=== PATIENT | female | born 1975 | race Caucasian/White ===

== ENCOUNTER → 2017-08-30 | Outpatient (CLI) | payer OTHER ==
[2017-08-30 09:43] VITALS: BP 95/51; PULSE 82; TEMP 96.6; BMI 17.2
--- NOTE | 2017-08-30 10:30 | P.GSHP ---
History of Present Illness H&P Date: 08/30/17 Patient is a 42 year old white female with a complaint of a lump in her left breast which changes in size at times. She also has a cystic change just under her left breast which changes in size at times. She does not have pain otherwise in her breast. Her last radiographic studies were a year ago, the left breast had additional views obtained and an ultrasound showed multiple cyst. At that time the patient was recommended to go to [place] for cyst aspiration, however for personal reason she was unable to make the trip. She presents today for evaluation as to the cysts/palpable changes in her breast. She also complains of 15 pound weight loss she has not ried to lose weight. family history: maternal grandmother; of breast cancer 76 maternal grandfather: cancer uncertain of type maternal aunt: brain uncertain if had breast cancer 5 maternal aunt: breast, dx at ? age sister: ovarian cancer in her 30's social: smoke: 1/2 PPD > 10 years alcohol: none drugs: none past surgical history: 1. C section ties 2 2. gallbladder 3. cervical "freeze and scrape" ? cancer or pre-cancer past medical history: 1. migraines 2. 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 cervical changes in the past neuro: feels week allergies: none - Constitutional Comment: sweats at times Constitutional: Reports night sweats, Denies chills, Denies fever - EENT Eyes: bilateral blurred vision Ears: bilateral: earache Ears, nose, mouth and throat: Reports headache, Denies sore throat - Breasts Breasts: bilateral: as per HPI - Cardiovascular Comment: midepigastric pain at times Cardiovascular: Denies shortness of breath - Respiratory Respiratory: Denies cough, Denies 7 - Gastrointestinal Comment: loose stools after gallblader removed Gastrointestinal: Denies abdominal pain, Denies diarrhea, Denies nausea, Denies vomiting - Genitourinary (Female) Genitourinary: Reports as per HPI - Musculoskeletal Comment: no arthritis, feet always cold Musculoskeletal: Reports muscle weakness - Integumentary Comment: cyst under left breast - Neurological Neurological: Reports weakness, Reports visual changes - Psychiatric Psychiatric: Denies anxiety, Denies depression - Endocrine Endocrine: Reports fatigue, Reports weight change - Hematologic/Lymphatic Comment: none - Allergic/Immunologic Comment: no seasonal allergies Allergic/Immunologic: Reports as per HPI Past Medical History Past Medical History: Cancer, Syncope Additional Past Medical History / Comment(s): cervical History of Any Multi-Drug Resistant Organisms: None Reported Past Surgical History: Section, Cholecystectomy, Tubal Ligation Additional Past Surgical History / Comment(s): section x2 Smoking Status: Current every day smoker Surgical - Exam Vital Signs Temp Pulse BP Pulse Ox 96.6 F L 82 95/51 99 08/30/17 09:37 08/30/17 09:37 08/30/17 09:37 08/30/17 09:37 - General cachectic - Eyes PERRL, normal ocular movement - ENT top edentulous/ wears false teeth on top bottom poor dentition normal pinna, normal nares - Neck no masses, trachea midline, no lymphadectomy, no venous distension - Respiratory normal respiratory effort, clear to auscultation - Cardiovascular Rhythm: regular Heart Sounds: normal: S1, S2 - Abdomen Abdomen: soft, non tender, no guarding, no rigid, no rebound - Integumentary no rash - Neurologic no disoriented, no combative - Musculoskeletal normal gait, normal posture - Psychiatric oriented to time, oriented to person, oriented to place, speech is normal, memory intact breast exam: Right breast: No dominant masses or nodules of concern and multiple positional exam Right axilla: No adenopathy of concern Left breast: Multiple positional exam reveals fibrocystic changes with increased nodularity in the 3 o'clock position close to the periareolar region this was placed to be consistent with a cyst that appears to be smooth-walled and bedside evaluation Left axilla: No adenopathy of concern that she had her last mammogram and ultrasound Assessment and Plan Assessment: Impression/plan: 1. Bilateral fibrocystic disease of the breast with increased nodularity in the left breast, last mammogram and ultrasound approximately one year ago would recommend repeat radiographic studies at this time 2. Chronic fatigue, weight loss, headaches, visual changes, weakness greater than left side than right with consider neurologic consultation and possible head CT 3. Strong family history of cancer including 5 aunts with breast cancer would recommend genetic counseling 4. Will follow-up patient after radiographic studies of the breast for possible cyst aspiration 5. Irregular periods, consider theater usher consult cc: Tito Ballesteros
--- NOTE | 2017-09-09 08:41 | MM ---
Reason for exam: clinical finding. Last mammogram was performed 1 year ago. History: Patient history of other cancer. Family history of breast cancer in grandmother and breast cancer in 5 maternal aunts. Took hormonal contraceptives beginning at age 15. Physical Findings: Nurse Summary: 1cm nodule in the left breast at 1 o'clock (nurse dw)> MG Diagnostic Mammo w CAD SHERLY Bilateral CC and MLO view(s) were taken. Prior study comparison: September 03, 2016, left breast mammogram, performed at [place]. August 27, 2016, bilateral mammogram, performed at [facility]. The breast tissue is extremely dense which could obscure a lesion on mammography. Benign appearing bilateral calcifications. No suspicious abnormality. No significant new findings when compared with previous films. These results were verbally communicated with the patient and result sheet given to the patient on 09/06/17. ASSESSMENT: Benign, BI-RAD 2 RECOMMENDATION: Routine screening mammogram of both breasts in 1 year.
--- NOTE | 2017-09-09 08:43 | USB ---
Reason for exam: clinical finding. History: Patient history of other cancer. Family history of breast cancer in grandmother and breast cancer in 5 maternal aunts. Took hormonal contraceptives beginning at age 15. US Breast LT Left complete breast ultrasound includes all four quadrants, the retroareolar region and axilla. Finding demonstrates a 6mm oval, cystic lesion at 12 o'clock, a 5mm oval, cystic lesion at 2 o'clock, a 7mm oval, cystic lesion at 5 o'clock, two 5mm cysts at 6 o'clock, a 6mm oval, cystic lesion at 9 o'clock, a 9mm oval, cystic lesion at 11 o'clock and a cystic cluster at 2 o'clock largest within cluster measuring 5mm. These results were verbally communicated with the patient and result sheet given to the patient on 09/06/17. ASSESSMENT: Benign, BI-RAD 2 RECOMMENDATION: Routine screening mammogram of both breasts in 1 year.
== END | disposition home or self-care (01) ==
LOC: MERGE 09:00 → WWCWWP 09:26
PROVIDERS: ATTEND Surgery
DX: R92.8 Other abnormal and inconclusive findings on diagnostic imaging of breast (principal)
CPT/HCPCS: 77066

== ENCOUNTER 2020-12-27 11:13 | Emergency (ER) | payer OTHER ==
[2020-12-27 11:40] VITALS: RESP 18; TEMP 98.1
[2020-12-27 11:50] LABS: Appearance,Urine Clear (Clear); Bilirubin,Urine Negative (Negative); Blood,Urine Trace (Negative); Color,Urine Yellow; Glucose,Urine (UA) Negative (Negative); Ketones,Urine Negative (Negative); Leukocyte Esterase,Urine Negative (Negative); Mucus,Urine Few /hpf; Nitrite,Urine Negative (Negative); PH, Urine 5.5 (5.0-8.0); Protein,Urine Negative (Negative); RBC,Urine <1 /hpf (0-5); Squamous Epithelial Cell,Urine 3 /hpf (0-4); Urobilinogen,Urine <2.0 mg/dL (<2.0); WBC,Urine 1 /hpf (0-5)
[2020-12-27] MEDS ORDERED: KETOROLAC 15 MG/ML 1 ML VIAL IVP STA (13:45)
[2020-12-27] MEDS ORDERED: SODIUM CHLORIDE 0.9% 500 ML 500 ML IV STA (13:45)
--- NOTE | 2020-12-27 14:47 | ED ---
Female Urogenital HPI - General Chief complaint: Urogenital Stated complaint: kidney stones Time Seen by Provider: 12/27/20 13:16 Source: patient, RN notes reviewed, old records reviewed Mode of arrival: ambulatory Limitations: no limitations - History of Present Illness Initial comments: Patient is a 45-year-old female presenting to emergency Department with complaints of bilateral lower back pain over the past 1 week. She states she has history of kidney stones and this is feeling similar nature. She describes the pain as aching muscles on the left side versus the right. She states is lower in nature and feels like it could be kidney pain. She denies doing anything as ago that could have this pain on. She denies any fevers or chills, some mild nausea but no vomiting. She denies any vaginal complaints, no dysuria. She denies any chest pain or shortness of breath. She has no further complaints. Her vitals are stable upon arrival. - Related Data Home Medications Medication Instructions Recorded Confirmed Estrogen,Con/M-Progest Acet 1 tab PO DAILY 12/27/20 12/27/20 [Prempro 0.3 mg-1.5 mg Tablet] Allergies Allergy/AdvReac Type Severity Reaction Status Date / Time No Known Allergies Allergy Verified 12/27/20 14:09 Review of Systems ROS Statement: Those systems with pertinent positive or pertinent negative responses have been documented in the HPI. ROS Other: All systems not noted in ROS Statement are negative. Past Medical History Past Medical History: Cancer, Syncope Additional Past Medical History / Comment(s): cervical History of Any Multi-Drug Resistant Organisms: None Reported Past Surgical History: Section, Cholecystectomy, Tubal Ligation Additional Past Surgical History / Comment(s): section x2 Past Psychological History: No Psychological Hx Reported Smoking Status: Current every day smoker Past Alcohol Use History: Occasional Past Drug Use History: None Reported General Exam - General Exam Comments Initial Comments: GENERAL: Patient is well-developed and well-nourished. Patient is nontoxic and in no acute distress. HEAD: Atraumatic, normocephalic. EYES: Pupils equal round and reactive to light, extraocular movements intact, sclera anicteric, conjunctiva are normal. Eyelids were unremarkable. ENT: Nares patent, oropharynx clear without exudates. Moist mucous membranes. NECK: Normal range of motion, supple without lymphadenopathy or JVD. LUNGS: Unlabored respirations. Breath sounds clear to auscultation bilaterally and equal. No wheezes rales or rhonchi. HEART: Regular rate and rhythm without murmurs, rubs or gallops. ABDOMEN: Soft, nontender, normoactive bowel sounds. No guarding, no rebound. No masses appreciated. Mild flank pain. : Deferred MUSCULOSKELETAL: Normal extremities with adequate strength and normal range of motion, no pitting or edema. No clubbing or cyanosis. NEUROLOGICAL: Patient is alert and oriented x 3. SKIN: Warm, Dry, normal turgor, no rashes or lesions noted. Limitations: no limitations Course Vital Signs 12/27/20 11:35 Temperature 98.1 F Pulse Rate 73 Respiratory 18 Rate Blood Pressure 103/63 O2 Sat by Pulse 99 Oximetry Medical Decision Making - Medical Decision Making Patient is a 45-year-old female here with bilateral mild flank pain over the past week. She is concerned for kidney stones again. Her vitals are stable. Labs are all within normal limits including normal white count, normal kidney function, urine shows evidence of infection. CT of the abdomen and pelvis shows bilateral nonobstructing renal stones, the largest stone is in the right measures 0.3 cm. Patient received fluids and Toradol, is resting comfortably. I will give her referral to urology. She is stable for discharge. She is agreeable to this plan of care. Return parameters were discussed with her and she verbalized understanding. - Lab Data Result diagrams: 12/27/20 13:55 12/27/20 13:55 Lab Results 12/27/20 12/27/20 12/27/20 Range/Units 11:40 13:55 13:55 WBC 6.7 (3.8-10.6) k/uL RBC 4.24 (3.80-5.40) m/uL Hgb 13.6 (11.4-16.0) gm/dL Hct 42.0 (34.0-46.0) % MCV 98.9 (80.0-100.0) fL MCH 32.1 (25.0-35.0) pg MCHC 32.4 (31.0-37.0) g/dL RDW 12.3 (11.5-15.5) % Plt Count 217 (150-450) k/uL MPV 8.7 Neutrophils % 61 % Lymphocytes % 32 % Monocytes % 5 % Eosinophils % 0 % Basophils % 0 % Neutrophils # 4.1 (1.3-7.7) k/uL Lymphocytes # 2.1 (1.0-4.8) k/uL Monocytes # 0.3 (0-1.0) k/uL Eosinophils # 0.0 (0-0.7) k/uL Basophils # 0.0 (0-0.2) k/uL Sodium 137 (137-145) mmol/L Potassium 3.7 (3.5-5.1) mmol/L Chloride 108 H (98-107) mmol/L Carbon Dioxide 20 L (22-30) mmol/L Anion Gap 9 mmol/L BUN 17 (7-17) mg/dL Creatinine 0.47 L (0.52-1.04) mg/dL Est GFR (CKD-EPI)AfAm >90 (>60 ml/min/1.73 sqM) Est GFR (CKD-EPI)NonAf >90 (>60 ml/min/1.73 sqM) Glucose 91 (74-99) mg/dL Calcium 8.9 (8.4-10.2) mg/dL Total Bilirubin 1.2 (0.2-1.3) mg/dL AST 23 (14-36) U/L ALT 13 (4-34) U/L Alkaline Phosphatase 79 (38-126) U/L Total Protein 6.8 (6.3-8.2) g/dL Albumin 4.3 (3.5-5.0) g/dL Urine Color Yellow Urine Appearance Clear (Clear) Urine pH 5.5 (5.0-8.0) Ur Specific [place] 1.020 (1.001-1.035) Urine Protein Negative (Negative) Urine Glucose (UA) Negative (Negative) Urine Ketones Negative (Negative) Urine Blood Trace H (Negative) Urine Nitrite Negative (Negative) Urine Bilirubin Negative (Negative) Urine Urobilinogen <2.0 (<2.0) mg/dL Ur Leukocyte Esterase Negative (Negative) Urine RBC <1 (0-5) /hpf Urine WBC 1 (0-5) /hpf Ur Squamous Epith Cells 3 (0-4) /hpf Urine Mucus Few H (None) /hpf Disposition Clinical Impression: Renal colic, Kidney stones Disposition: HOME SELF-CARE Condition: Stable Instructions (If sedation given, give patient instructions): Renal Colic (ED) Additional Instructions: Please return to the Emergency Department if symptoms worsen or any other concerns. Please Follow-up with urology. Is patient prescribed a controlled substance at d/c from ED?: No Referrals: Nonstaff,Physician [Primary Care Provider] - 1-2 days Rafa Su MD [STAFF PHYSICIAN] - 1-2 days Time of Disposition: 15:36
--- NOTE | 2020-12-27 14:48 | CT ---
EXAMINATION TYPE: CT abdomen pelvis wo con DATE OF EXAM: 12/27/2020 COMPARISON: None INDICATION: Bilateral back pain and flank pain, history of stones DLP: 198.4 mGycm, Automated exposure control for dose reduction was used. CONTRAST: 0 mL of Isovue 300. Study performed without Oral Contrast TECHNIQUE: Axial images were obtained from above the diaphragm to the pubic rami in the axial plane a t 5 mm thick sections. Reconstructed images are reviewed on the computer in the coronal plane. FINDINGS: Limited CT sections are obtained the lung bases. The lung bases are clear. CT ABDOMEN: Liver: Normal Spleen: Normal Pancreas: Normal Adrenal glands: The adrenal glands are normal. Gallbladder: Surgically absent Kidneys: No masses are evident. No hydronephrosis is present. No cysts are present. There is a 1 m m punctate calcification in the superior pole left kidney. A midpole punctate calcification is presen t. There is a 1 mm calcification in the posterior mid right kidney. The largest calcifications in the mid to inferior pole right kidney and measures 0.3 cm. No hydronephrosis is evident. No obstructing stones are evident. Aorta: Normal Inferior vena cava: Normal. CT PELVIS: Phlebolith appears to be posterior to the urinary bladder. No dilated ureter is evident on the left. Loops of bowel within the abdomen and pelvis are normal. This study is lateral contrast limiting bowel evaluation. Appendix: Normal as visualized. Urinary bladder: Normal. Genitourinary structures: Uterus is in the right hemipelvis. Adnexal regions appear normal Osseous structures: Small bone island in the right pubic symphysis. No suspicious lytic or sclerotic lesions are evident. IMPRESSIONS: 1. Bilateral nonobstructing renal stones. The largest is on the right and measures 0.3 cm.
[2020-12-27 14:53] LABS: Basophils % (A) 0 %; Eosinophils % (A) 0 %; HGB 13.6 gm/dL (11.4-16.0); Lymphocytes # (A) 2.1 k/uL (1.0-4.8); Lymphocytes % (A) 32 %; MCH 32.1 pg (25.0-35.0); MCHC 32.4 g/dL (31.0-37.0); MCV 98.9 fL (80.0-100.0); Mean Platelet Volume 8.7; Monocytes # (A) 0.3 k/uL (0-1.0); Monocytes % (A) 5 %; Neutrophils # (A) 4.1 k/uL (1.3-7.7); Neutrophils % (A) 61 %; Platelet Count 217 k/uL (150-450); RBC 4.24 m/uL (3.80-5.40); RDW 12.3 % (11.5-15.5); WBC 6.7 k/uL (3.8-10.6)
[2020-12-27 15:04] LABS: ALT 13 U/L (4-34); AST 23 U/L (14-36); African American GFR (CKD) >90 (>60 ml/min/1.73 sqM); Albumin 4.3 g/dL (3.5-5.0); Alkaline Phosphatase 79 U/L (38-126); Anion Gap 9 mmol/L; Blood Urea Nitrogen 17 mg/dL (7-17); Calcium 8.9 mg/dL (8.4-10.2); Carbon Dioxide 20 mmol/L (22-30); Chloride 108 mmol/L (98-107); Glucose 91 mg/dL (74-99); Non-African American GFR(CKD) >90 (>60 ml/min/1.73 sqM); Potassium 3.7 mmol/L (3.5-5.1); Sodium 137 mmol/L (137-145); Total Bilirubin 1.2 mg/dL (0.2-1.3); Total Protein 6.8 g/dL (6.3-8.2)
[2020-12-27 15:58] VITALS: BP 97/49; PULSE 59
== END 2020-12-27 15:55 | disposition home or self-care (01) ==
LOC: EC 11:13
DX: N20.0 Calculus of kidney (principal); M54.50 Low back pain, unspecified; F17.200 Nicotine dependence, unspecified, uncomplicated
CPT/HCPCS: 99284 ×2; 96374 ×2; 36415; 80053; 85025; 81001; 74176; J1885